=== PATIENT | male | born 1995 | race Caucasian/White ===

== ENCOUNTER 2019-04-05 11:27 | Emergency (ER) | payer OTHER ==
[2019-04-05 11:42] VITALS: BP 115/77; PULSE 66; RESP 18; TEMP 98
[2019-04-05] MEDS ORDERED: LIDOCAINE 1% INJ 10MG/ML (20 ML MDV) SQ ONE (11:46)
[2019-04-05] MEDS ORDERED: DIPH,PERTUS(ACELL)TETVAC-LF 0.5 ML VIAL IM ONE (11:46)
[2019-04-05] MEDS ORDERED: GELATIN SPONGE,ABSORB (SMALL) 1 EACH SPONGE TOPICAL STA (11:52)
[2019-04-05] MEDS ORDERED: SILVER NITRATE APPLICATOR 1 EACH STICK..EA. TOPICAL STA (11:52)
--- NOTE | 2019-04-05 12:08 | ED ---
General Adult HPI - General Chief complaint: Wound/Laceration Stated complaint: [facility] - finger lac Time Seen by Provider: 04/05/19 11:45 Source: patient, RN notes reviewed, old records reviewed Mode of arrival: ambulatory Limitations: no limitations - History of Present Illness Initial comments: 23 year old male with CC of of left 3rd digit laceration. 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 Patient reports that he avulsed a portion of the nail as well. Patient denies pain with ROM and reports normal sensation. Patient has no other symptoms. - Related Data Allergies Allergy/AdvReac Type Severity Reaction Status Date / Time No Known Allergies Allergy Verified 04/05/19 11:39 Review of Systems ROS Statement: Those systems with pertinent positive or pertinent negative responses have been documented in the HPI. ROS Other: All systems not noted in ROS Statement are negative. Past Medical History Past Medical History: No Reported History History of Any Multi-Drug Resistant Organisms: None Reported Past Surgical History: No Surgical Hx Reported Past Psychological History: No Psychological Hx Reported Smoking Status: Never smoker Past Alcohol Use History: None Reported Past Drug Use History: None Reported General Exam - General Exam Comments Initial Comments: 23 year old male, no distress. Limitations: no limitations General appearance: alert, in no apparent distress Head exam: Present: atraumatic, normocephalic, normal inspection Eye exam: Present: normal appearance, PERRL, EOMI. Absent: scleral icterus, conjunctival injection, periorbital swelling ENT exam: Present: normal exam, mucous membranes moist Neck exam: Present: normal inspection. Absent: tenderness, meningismus, lymphadenopathy Respiratory exam: Present: normal lung sounds bilaterally. Absent: respiratory distress, wheezes, rales, rhonchi, stridor Cardiovascular Exam: Present: regular rate, normal rhythm, normal heart sounds. Absent: systolic murmur, diastolic murmur, rubs, gallop, clicks GI/Abdominal exam: Present: soft, normal bowel sounds. Absent: distended, tenderness, guarding, rebound, rigid Extremities exam: Present: normal inspection, full ROM, normal capillary refill, other (avulsion to tip of L 3rd finger with parital distal nail avusion. ). Absent: tenderness, pedal edema, joint swelling, calf tenderness Back exam: Present: normal inspection Neurological exam: Present: alert, oriented X3, CN II-XII intact Psychiatric exam: Present: normal affect, normal mood Skin exam: Present: warm, dry, intact, normal color. Absent: rash Course Vital Signs 04/05/19 11:39 Temperature 98 F Pulse Rate 66 Respiratory 18 Rate Blood Pressure 115/77 O2 Sat by Pulse 100 Oximetry Medical Decision Making - Medical Decision Making 23 year old male with finger laceration and fingr tip avulsion. Patient has distal nail avulsion. PAtient hand xray is negative for fracture. PAtient wound was cleansed, used silver nitrate to cauterize bleeding vessel from avulsed tip and gelfoam applied. Patient wound dressed in tube gauze return parameters discussed. - Radiology Data Radiology results: report reviewed Finger xray is negative for acute process, no osseos injury. Disposition Clinical Impression: Avulsion, finger tip Disposition: HOME SELF-CARE Condition: Good Instructions (If sedation given, give patient instructions): Finger Laceration (ED) Additional Instructions: Patient advised to keep the wound covered for the next 48 and hours. Afterwards he can remove the dressing and take Gelfoam off with soaking it. Patient advised to follow-up with PCP. Return parameters were discussed. Is patient prescribed a controlled substance at d/c from ED?: No Referrals: None,Stated [Primary Care Provider] - 1-2 days Time of Disposition: 12:29
--- NOTE | 2019-04-05 12:23 | XR ---
EXAMINATION TYPE: XR finger LT DATE OF EXAM: 04/05/2019 COMPARISON: NONE HISTORY: Laceration to the distal end of the 3rd digit after cut with a knife. TECHNIQUE: Three views of the left third digit were obtained. FINDINGS: No osseous laceration is seen. No acute fracture or dislocation of the left third digit. No radiopaque foreign body. Mild subcutaneous soft tissue swelling. IMPRESSION: No radiopaque foreign body, osseous laceration or fracture of the left third digit.
== END 2019-04-05 13:07 | disposition home or self-care (01) ==
LOC: EC 11:27
DX: S61.313A Laceration without foreign body of left middle finger with damage to nail, initial encounter (principal); Z23 Encounter for immunization; W26.0XXA Contact with knife, initial encounter; Y93.G1 Activity, food preparation and clean up; Y92.69 Other specified industrial and construction area as the place of occurrence of the external cause; Y99.0 Civilian activity done for income or pay; Z53.8 Procedure and treatment not carried out for other reasons
CPT/HCPCS: 12001; 90471; 90715; 99283